=== PATIENT | female | born 1970 | race African-American/Black ===

== ENCOUNTER 2016-07-18 05:21 | Emergency (ER) | payer SELFPAY ==
[~2016-07-18] VITALS: Ht 162.6 cm; Wt 65.9 kg
[2016-07-18 05:45] VITALS: BP 132/84
== END 2016-07-18 06:40 | disposition left against medical advice (07) ==
LOC: ER 05:22
DX: Z53.21 Procedure and treatment not carried out due to patient leaving prior to being seen by health care provider (principal)

== ENCOUNTER 2016-09-25 15:39 | Emergency (ER) | payer SELFPAY ==
[~2016-09-25] VITALS: Ht 162.6 cm; Wt 70.0 kg
[2016-09-25] MEDS ORDERED: IBUPROFEN 800MG TABLET PO ONE (17:45)
[2016-09-25 20:05] VITALS: BP 138/79
== END 2016-09-25 20:07 | disposition home or self-care (01) ==
LOC: ER 19:37
DX: S80.212A Abrasion, left knee, initial encounter (principal); S80.211A Abrasion, right knee, initial encounter; S60.212A Contusion of left wrist, initial encounter; S60.211A Contusion of right wrist, initial encounter; V49.59XA Passenger injured in collision with other motor vehicles in traffic accident, initial encounter; Y93.89 Activity, other specified; Y92.410 Unspecified street and highway as the place of occurrence of the external cause
CPT/HCPCS: 99282

== ENCOUNTER 2018-07-14 08:54 | Emergency (ER) | payer MEDICAID ==
[~2018-07-14] VITALS: Ht 162.6 cm; Wt 93.7 kg
[2018-07-14] MEDS: TETRACAINE/BENZOCAINE/BUTAMBEN 20 GM SPRAY MM ONE (10:00)
[2018-07-14 10:04] LABS: HEMOGLOBIN. 13.6 g/dL (12.0-16.0); MEAN CORPUSCULAR HEMOGLOBIN 28.8 pg (28.0-32.0); MEAN CORPUSCULAR VOLUME 87.1 fL (81.0-99.0); MEAN PLATELET VOLUME 7.3 fl (7.4-10.4); PLATELET 473 x1000/uL (130-400); RED BLOOD CELL COUNT 4.71 mill/uL (4.2-5.4); RED CELL DISTRIBUTION WIDTH 13.1 % (11.6-14.6)
[2018-07-14] MEDS: SODIUM CHLORIDE 0.9% 1,000 ML IV ONE (10:04)
[2018-07-14 10:10] LABS: CHLORIDE 107 mEq/L (98-107)
[2018-07-14] MEDS: KETOROLAC 15MG/ML VIAL IV ONE (10:10)
[2018-07-14] MEDS: DEXAMETHASONE 4MG/ML 1ML VIAL IV ONE (10:17)
[2018-07-14 10:28] LABS: PLATELET ESTIMATE INCREASED
[2018-07-14] MEDS: PEN G BENZ/PEN G PROCAINE CR 1.2 MMU/2 ML IM ONE (10:40)
[2018-07-14] MEDS ORDERED: IOHEXOL-300 100 ML BOTTLE ONE (14:11)
[2018-07-14 14:35] VITALS: BP 164/95
== END 2018-07-14 14:46 | disposition home or self-care (01) ==
LOC: ER 08:54
DX: J36 Peritonsillar abscess (principal)
CPT/HCPCS: 36415; 70491; 80053; 85025; 87040; 96372; 96374; 96375; 99284; J0558; J1100; J1885; J7030; Q9967; Z7610